=== PATIENT | female | born 1965 | race Caucasian/White ===

== ENCOUNTER 2018-02-27 09:38 | Emergency (ER) | payer OTHER, BC ==
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
== END 2018-02-27 11:11 | disposition home or self-care (01) ==
LOC: JP.ED 09:38
DX: S50.12XA Contusion of left forearm, initial encounter (principal); M62.830 Muscle spasm of back; Z88.1 Allergy status to other antibiotic agents; V23.5XXA Motorcycle passenger injured in collision with car, pick-up truck or van in traffic accident, initial encounter
CPT/HCPCS: 72050; 72050-26; 73090-26-LT; 73090-LT; 99284